=== PATIENT | female | born 1965 | race Caucasian/White ===

== ENCOUNTER 2020-09-30 13:52 | Outpatient (REF) | payer OTHER, SELFPAY ==
[2020-09-30 16:32] LABS: Hematocrit 42.3 % (37-47); Hemoglobin 13.7 g/dl (12.0-16.0); Mean Corpuscular HGB Conc 32.4 g/dl (31.0-35.0); Mean Corpuscular Hemoglobin 35.1 pg (27.0-33.0); Mean Corpuscular Volume 108.5 fL (80-98); Platelet Count 255 X10*3/uL (160-400); Red Cell Distribution Width 12.5 % (11.0-16.0); White Blood Count 5.8 X10*3/uL (4.8-10.8)
[2020-09-30 16:41] LABS: Glucose Urine UA NEG (NEG); Leukocyte Esterase Urine NEG (NEG); Nitrite Urine NEG (NEG); PH 5.5 (5.0-8.0); Urine Blood NEG (NEG); Urine Ketones NEG (NEG); Urine Protein NEG (NEG-TRACE)
[2020-09-30 16:43] LABS: Appearance Urine CLEAR; Color Urine YELLOW
[2020-09-30 16:49] LABS: Bacteria Urine TRACE /LPF; Mucus Urine TRACE /LPF; RBC Urine 0 /HPF (0); Squamous Epithelial Cell Urine 2+ /LPF; Uric Acid Crystals Urine TRACE /LPF
[2020-09-30 17:02] LABS: Alanine Aminotransferase 28 U/L (0-31); Alkaline Phosphatase 63 U/L (39-117); Anion Gap 13 (12-20); Aspartate Amino Transferase 45 U/L (5-31); Bilirubin Total 0.7 mg/dL (0.0-1.0); Blood Urea Nitrogen 3 mg/dL (9-16); Carbon Dioxide 28 mmol/L (22-29); Chloride 102 mmol/L (96-108); Cholesterol 204 mg/dL; Estimated Glomerular Filt Rate > 60; Glucose Fasting 93 mg/dL (60-99); HDL Cholesterol 51 mg/dL; LDL Cholesterol Calculated 121 mg/dl; Magnesium 2.1 mg/dL (1.6-2.6); Potassium 4.1 mmol/L (3.3-5.1); Sodium 139 mmol/L (135-145); Total Protein 6.6 g/dL (6.5-8.0); Triglycerides 164 mg/dL
[2020-09-30 17:19] LABS: TSH reflex Free T4 2.41 uIU/mL (0.32-4.0)
== END 2020-09-30 13:53 | disposition home or self-care (01) ==
LOC: HO.HMGCLDS 13:52
PROVIDERS: PCP Internal Medicine; Visit Provider Internal Medicine
DX: Z00.00 Encounter for general adult medical examination without abnormal findings (principal); I10 Essential (primary) hypertension
CPT/HCPCS: 36415; 80053; 80061; 81001; 83735; 84443; 85027

== ENCOUNTER 2020-10-20 11:31 | Outpatient (REF) | payer OTHER, SELFPAY ==
[2020-10-20 14:30] LABS: Iron 143 mcg/dL (30-160); Percent Iron Saturation 42 % (15-50); Total Iron Binding Capacity 337 mcg/dL (228-428); Unsaturated Iron Binding 194 ug/dL
[2020-10-20 15:41] LABS: Folate 4.3 ng/mL (> or = 4.0); Vitamin B12 245 pg/mL (200-900)
== END 2020-10-20 11:32 | disposition home or self-care (01) ==
LOC: HO.HMGCLDS 11:31
PROVIDERS: PCP Internal Medicine; Visit Provider Internal Medicine
DX: D53.9 Nutritional anemia, unspecified (principal)
CPT/HCPCS: 36415; 82607; 82746; 83540

== ENCOUNTER 2020-11-10 10:29 | Outpatient (REF) | payer OTHER, SELFPAY ==
--- NOTE | ~2020-11-10 | US_ITS ---
EXAMINATION: US EXTRACRANIAL CAROTID DUPLEX, BILATERAL CLINICAL INFORMATION: Sudden vision loss. COMPARISON: None TECHNIQUE: Real-time ultrasound and Doppler techniques (integrating B-mode 2-D vascular images, Doppler spectral analysis and color-flow Doppler imaging) were utilized to interrogate the extracranial carotid arteries, the vertebral arteries and proximal subclavian arteries bilaterally. The degree of stenosis is determined by criteria similar to NASCET. FINDINGS: Right Side: 1. There is no atherosclerotic plaque seen in the bifurcation/proximal ICA region. 2. The common carotid artery PSV proximally is 93 cm/s and distally 89 cm/s. 3. The proximal internal carotid artery velocities are 66 cm/s systolic and 22 cm/s diastolic. 4. The proximal external carotid artery PSV is 54 cm/s. 5. The vertebral artery shows antegrade flow. 6. The subclavian artery waveforms are normal. Left Side: 1. There is no atherosclerotic plaque seen in the bifurcation/proximal ICA region. 2. The common carotid artery PSV proximally is 87 cm/s and distally 62 cm/s. 3. The proximal internal carotid artery velocities are 71 cm/s systolic and 26 cm/s diastolic. 4. The proximal external carotid artery PSV is 67 cm/s. 5. The vertebral artery shows antegrade flow. 6. The subclavian artery waveforms are normal. US/US carotid duplex BI IMPRESSION: 1. RIGHT: Normal right internal carotid artery without atherosclerotic plaque or hemodynamically significant stenosis. 2. LEFT: Normal left internal carotid artery without atherosclerotic plaque or hemodynamically significant stenosis.
--- NOTE | ~2020-11-10 | US_ITS ---
EXAMINATION: US COMPLETE ABDOMEN WITH LIVER ELASTOGRAPHY CLINICAL INFORMATION: Cirrhosis. COMPARISON: None. TECHNIQUE: Real-time imaging of the abdominal viscera. Noninvasive ultrasound liver fibrosis assessment is performed using Benji ElastPQ point quantification shear wave elastography (pSWE) with a C5-2 MHz transducer. Multiple elastography samples are obtained. FINDINGS: PANCREAS: The pancreas is partially visualized with proximal body of the pancreas appearing homogeneous in echotexture. ABDOMINAL AORTA: The proximal, middle, and distal aortic segments are normal in caliber. INFERIOR VENA CAVA: Visualized portions are normal. LIVER: The liver demonstrates normal size, contour and increased echogenicity. No focal lesion or intrahepatic biliary duct dilatation. The right lobe measures 12.2 cm in length. The left lobe measures 5.0 cm in length. Portal flow is hepatopedal. Shear wave liver elastography median stiffness is 1.54 m/s (reference: normal median stiffness is 1.3 m/s or less). IQR/median stiffness to assess sampling precision is 0.26 (reference: good quality data set is IQR/median stiffness of 0.15 or less). GALLBLADDER: There are multiple echogenic gallstones with mild gallbladder wall thickening of 0.4 cm. No pericholecystic fluid collection or tenderness in the right upper quadrant. COMMON BILE DUCT: Normal in caliber measuring 0.4 cm in diameter. RIGHT KIDNEY: Normal. No hydronephrosis. No renal calculi or focal parenchymal lesions. The kidney measures 10.6 cm in maximum dimension. LEFT KIDNEY: Normal. No hydronephrosis. No renal calculi or focal parenchymal lesions. The kidney measures 10.1 cm in maximum dimension. SPLEEN: Normal. The spleen measures 9.5 cm in maximum dimension. FREE FLUID: None. US/US abdomen comp w elastography IMPRESSION: 1. Hepatic steatosis without focal lesion. 2. Cholelithiasis with mild wall thickening. 3. Rest of the abdominal ultrasound is unremarkable. 4. Liver elastography: Median stiffness 1.54 m/s. This corresponds to cACL (ruled out) REFERENCE: Society of Radiologists in Ultrasound Liver Stiffness Thresholds (2019): LIVER STIFFNESS THRESHOLDS: *Liver Stiffness equal or less than 1.3 m/s: High probability of being normal. *Liver Stiffness less than 1.7 m/s: In the absence of other known clinical signs, rules out compensated advanced chronic liver disease. *Liver Stiffness 1.7-2.1 m/s: Suggestive of compensated advanced chronic liver disease but need further test for confirmation. *Liver Stiffness over 2.1 m/s: Rules in compensated advanced chronic liver disease. *Liver Stiffness over 2.4 m/s: Suggestive of clinically significant portal hypertension. QUALITY OF DATA SET: *IQR/Median value equal or less than 0.15 implies a quality data set. *IQR/Median value over 0.15 implies a poor quality data set. SIGNIFICANT CHANGE FROM PRIOR EXAM: Significant change if liver stiffness measurement is 10% or greater from prior exam. OTHER CONSIDERATIONS: The stage of liver fibrosis may be overestimated in the setting of acute hepatitis, liver inflammation, elevated liver function tests, hepatic vascular congestion, obstructive cholestasis, non-fasting state, and infiltrative diseases such as amyloidosis and lymphoma. In some patients with NAFLD, the liver stiffness thresholds for compensated advanced chronic liver disease may be lower. In causes other than viral hepatitis and NAFLD, liver stiffness thresholds are not well established.
== END 2020-11-10 10:30 | disposition home or self-care (01) ==
LOC: HO.US 10:29
PROVIDERS: PCP Internal Medicine; Visit Provider Internal Medicine
DX: K74.60 Unspecified cirrhosis of liver (principal); D53.9 Nutritional anemia, unspecified; H53.139 Sudden visual loss, unspecified eye
CPT/HCPCS: 76705; 76981; 93880

== ENCOUNTER → 2020-12-22 14:54 | Outpatient (BNVA) | payer OTHER, SELFPAY | PROVIDERS: PCP Internal Medicine; Referring Provider Internal Medicine; Visit Provider Surgery | DX: K52.9 Noninfective gastroenteritis and colitis, unspecified (principal) | CPT/HCPCS: 99202 ==

== ENCOUNTER 2021-12-01 10:37 | Outpatient (REF) | payer OTHER, SELFPAY ==
[2021-12-01 13:42] LABS: Basophils Absolute Auto 0.1 X10*3/uL (0.0-0.2); Basophils Percent Auto 0.9 % (0-2); Eosinophils Absolute Auto 0.3 X10*3/uL (0.0-0.4); Eosinophils Percent Auto 3.9 % (0-4); Hematocrit 44.1 % (37.0-47.0); Hematocrit 44.2 % (37.0-47.0); Hemoglobin 14.1 g/dl (12.0-16.0); Imm Gran Abs Auto 0.02 X10*3/uL (0.00-0.03); Imm Gran Pct Auto 0.3 % (0.0-0.4); Lymphocytes Absolute Auto 1.6 X10*3/uL (1.2-4.9); Lymphocytes Percent Auto 25.5 % (20-40); MANUAL DIFF FLAG NO; Mean Corpuscular HGB Conc 31.7 g/dl (31.0-35.0); Mean Corpuscular HGB Conc 31.9 g/dl (31.0-35.0); Mean Corpuscular Hemoglobin 30.8 pg (27.0-33.0); Mean Corpuscular Hemoglobin 31.1 pg (27.0-33.0); Mean Corpuscular Volume 97.1 fL (80.0-98.0); Mean Corpuscular Volume 97.6 fL (80.0-98.0); Mean Platelet Volume 11.5 fL (9.4-12.3); Mean Platelet Volume 11.7 fL (9.4-12.3); Monocytes Absolute Auto 0.3 X10*3/uL (0.1-1.2); Monocytes Percent Auto 4.6 % (2-11); Neutrophils Absolute Auto 4.1 x10*3/uL (2.0-8.3); Neutrophils Percent Auto 64.8 % (45-73); Platelet Count 262 X10*3/uL (160-400); Platelet Count 267 X10*3/uL (160-400); Red Blood Count 4.53 X10*6/uL (4.20-5.50); Red Blood Count 4.54 X10*6/uL (4.20-5.50); Red Cell Distribution Width 11.2 % (11.0-16.0); White Blood Count 6.4 X10*3/uL (4.8-10.8); White Blood Count 6.5 X10*3/uL (4.8-10.8)
[2021-12-01 14:00] LABS: Estimated Average Glucose 108 mg/dL; Hemoglobin A1c % 5.4 %
[2021-12-01 14:04] LABS: Alanine Aminotransferase 14 U/L (0-31); Albumin Level 4.5 g/dL (3.5-5.0); Alkaline Phosphatase 61 U/L (39-117); Anion Gap 12 (12-20); Aspartate Amino Transferase 15 U/L (5-31); Bilirubin Total 0.6 mg/dL (0.0-1.0); Blood Urea Nitrogen 9 mg/dL (9-16); Calcium 10.1 mg/dL (8.4-10.2); Carbon Dioxide 29 mmol/L (22-29); Chloride 103 mmol/L (96-108); Cholesterol 242 mg/dL; Estimated Glomerular Filt Rate > 60; Glucose Fasting 101 mg/dL (60-99); HDL Cholesterol 45 mg/dL; Iron 66 mcg/dL (30-160); LDL Cholesterol Calculated 168 mg/dl; Percent Iron Saturation 21 % (15-50); Potassium 4.4 mmol/L (3.3-5.1); Sodium 140 mmol/L (135-145); Total Iron Binding Capacity 313 mcg/dL (228-428); Total Protein 7.4 g/dL (6.5-8.0); Triglycerides 146 mg/dL; Unsaturated Iron Binding 247 ug/dL
[2021-12-01 14:09] LABS: Alanine Aminotransferase 16 U/L (0-31); Albumin Level 4.5 g/dL (3.5-5.0); Alkaline Phosphatase 61 U/L (39-117); Amylase 44 U/L (28-100); Anion Gap 12 (12-20); Aspartate Amino Transferase 16 U/L (5-31); Bilirubin Total 0.6 mg/dL (0.0-1.0); Blood Urea Nitrogen 10 mg/dL (9-16); Calcium 10.1 mg/dL (8.4-10.2); Carbon Dioxide 29 mmol/L (22-29); Chloride 103 mmol/L (96-108); Cholesterol 241 mg/dL; Estimated Glomerular Filt Rate > 60; Glucose Random 99 mg/dL (60-115); Lipase 27 U/L (8-78); Magnesium 2.3 mg/dL (1.6-2.6); Potassium 4.4 mmol/L (3.3-5.1); Sodium 140 mmol/L (135-145); Total Protein 7.4 g/dL (6.5-8.0)
[2021-12-01 14:30] LABS: Vitamin D 25-OH Total 18.6 ng/mL (>30)
[2021-12-01 14:33] LABS: TSH reflex Free T4 0.98 uIU/mL (0.32-4.0)
[2021-12-01 14:34] LABS: Folate > 20.0 ng/mL (> or = 4.0); Vitamin B12 381 pg/mL (200-900)
[2021-12-01 14:35] LABS: Folate > 20.0 ng/mL (> or = 4.0); Vitamin B12 366 pg/mL (200-900)
[2021-12-04 07:44] LABS: HBc Num1 0.06 S/CO (0.00-0.79); Hepatitis B Core Antibody Nonreactive (Nonreactive)
[2021-12-04 07:45] LABS: ~HepC Num1 0.11 S/CO (0.00-0.79); ~Hepatitis C Antibody Nonreactive (Nonreactive)
[2021-12-07 15:12] LABS: Hepatitis C Genotype Not Detected
== END 2021-12-01 10:38 | disposition home or self-care (01) ==
LOC: HO.HMGCLDS 10:37
PROVIDERS: Absent Provider Counselor Addiction (Substance Use Disorder); PCP Internal Medicine; Visit Provider Internal Medicine
DX: Z00.00 Encounter for general adult medical examination without abnormal findings (principal); E53.8 Deficiency of other specified B group vitamins; I10 Essential (primary) hypertension; K52.9 Noninfective gastroenteritis and colitis, unspecified; F10.21 Alcohol dependence, in remission; F33.2 Major depressive disorder, recurrent severe without psychotic features; F41.1 Generalized anxiety disorder; Z79.899 Other long term (current) drug therapy; Z90.410 Acquired total absence of pancreas
CPT/HCPCS: 36415; 80053; 80061; 82150; 82306; 82465; 82607; 82746; 83036; 83540; 83690; 83735; 84439; 84443; 85025; 85027; 86704; 86803; 87902

== ENCOUNTER 2022-06-05 11:00 | Outpatient (RCR) | payer OTHER, SELFPAY ==
--- NOTE | 2022-04-09 14:21 | MHC.PT.EP ---
[facility] [place] [facility] [place] [facility] [place] Office [address] Manas Harrison [address] [phone] F: [phone] F: [phone] F: [phone] F: [phone] Physical Therapy Plan of Care Date of Evaluation: Date of Surgery: Diagnosis: cervicalgia Assessment: 56 y/o F referred to PT with cervicalgia. She has had on/off neck pain for several years of insidious onset, but has recently worsened resulting in pain and difficulty with prolonged sitting, computer work, looking down, reaching overhead, and turning head. Examination shows decreased cervical AROM, decreased scapular strength, increased pain, and impaired postural awareness. Recommend PT 2x/week for 5 weeks to address impairments, implement HEP, and optimize functional mobility. 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 Improve scapular strength to 4/5 to decrease pain in static postures 3 Pt will be able to sit with lumbar roll and pain < 3/10 for > 45 min Treatment Plan: Modalities to reduce pain, spasms and effusion. Manual therapy to restore motion and function. Therapeutic exercise to improve strength and flexibility. Neuromuscular re-education for posture and balance. Therapeutic activities to return to functional activities of daily living. Electronically signed by: Yenifer Morrison PT Please sign and return to therapist. Thank you for your referral.
--- NOTE | 2022-06-15 14:21 | MHC.PT.DC ---
[facility] [place] Office [place] Office [place] Office [address] Manas Harrison [address] [phone] F: [phone] F: [phone] F: [phone] F: [phone] Physical Therapy Discharge Report Diagnosis: cervicalgia Date of Surgery: Date of Evaluation: 04/09/22 Date of Discharge: 06/15/22 Treatments to Date: 12 Cancellations to Date: 0 No Shows to Date: 0 Discharge Status: Achieved Goals Improved Function Independent with HEP Discharge Summary: She has been making good progress and demonstrates improved cervical ROM, improved postural awareness, and is I with HEP. Appropriate for d/c at this time. Electronically signed by: Yenifer Morrison PT Please sign and return to therapist. Thank you for your referral.
== END 2022-06-15 14:21 | disposition home or self-care (01) ==
LOC: HO.PTCHIC 11:00
PROVIDERS: PCP Internal Medicine; Visit Provider Internal Medicine
DX: M54.2 Cervicalgia (principal)
CPT/HCPCS: 97012; 97014; 97110; 97140; 97161

== ENCOUNTER 2022-06-07 10:51 | Outpatient (REF) | payer OTHER, SELFPAY ==
[2022-06-07 13:50] LABS: MANUAL DIFF FLAG NO
[2022-06-07 13:56] LABS: Basophils Absolute Auto 0.1 X10*3/uL (0.0-0.2); Basophils Percent Auto 0.9 % (0-2); Eosinophils Absolute Auto 0.3 X10*3/uL (0.0-0.4); Eosinophils Percent Auto 5.1 % (0-4); Hematocrit 42.5 % (37.0-47.0); Hemoglobin 13.6 g/dl (12.0-16.0); Imm Gran Abs Auto 0.02 X10*3/uL (0.00-0.03); Imm Gran Pct Auto 0.3 % (0.0-0.4); Lymphocytes Absolute Auto 1.9 X10*3/uL (1.2-4.9); Mean Corpuscular Hemoglobin 29.4 pg (27.0-33.0); Mean Platelet Volume 11.1 fL (9.4-12.3); Monocytes Absolute Auto 0.3 X10*3/uL (0.1-1.2); Monocytes Percent Auto 4.5 % (2-11); Neutrophils Absolute Auto 3.8 x10*3/uL (2.0-8.3); Neutrophils Percent Auto 59.2 % (45-73); Platelet Count 263 X10*3/uL (160-400); Red Blood Count 4.62 X10*6/uL (4.20-5.50); Red Cell Distribution Width 13.1 % (11.0-16.0); White Blood Count 6.4 X10*3/uL (4.8-10.8)
[2022-06-07 14:15] LABS: Alanine Aminotransferase 15 U/L (0-31); Albumin Level 4.5 g/dL (3.5-5.0); Alkaline Phosphatase 62 U/L (39-117); Anion Gap 16 (12-20); Aspartate Amino Transferase 20 U/L (5-31); Blood Urea Nitrogen 11 mg/dL (9-16); Calcium 9.6 mg/dL (8.4-10.2); Carbon Dioxide 28 mmol/L (22-29); Chloride 102 mmol/L (96-108); Cholesterol 278 mg/dL; Estimated Glomerular Filt Rate > 60; Glucose Fasting 98 mg/dL (60-99); HDL Cholesterol 60 mg/dL; LDL Cholesterol Calculated 190 mg/dl; Potassium 4.3 mmol/L (3.3-5.1); Sodium 142 mmol/L (135-145); Total Protein 7.2 g/dL (6.5-8.0); Triglycerides 141 mg/dL
[2022-06-07 14:29] LABS: Bilirubin Total 0.6 mg/dL (0.0-1.0)
[2022-06-07 14:32] LABS: Vitamin D 25-OH Total 22.4 ng/mL (>30)
[2022-06-07 14:43] LABS: Folate 19.5 ng/mL (> or = 4.0); Vitamin B12 609 pg/mL (200-900)
== END 2022-06-07 10:52 | disposition home or self-care (01) ==
LOC: HO.HMGCLDS 10:51
PROVIDERS: PCP Internal Medicine; Visit Provider Internal Medicine
DX: Z00.00 Encounter for general adult medical examination without abnormal findings (principal); E55.9 Vitamin D deficiency, unspecified; E53.8 Deficiency of other specified B group vitamins; I10 Essential (primary) hypertension
CPT/HCPCS: 36415; 80053; 80061; 82306; 82607; 82746; 85025

== ENCOUNTER 2022-07-18 11:00 | Outpatient (RCR) | payer OTHER, SELFPAY ==
--- NOTE | 2022-06-07 13:03 | MHC.PT.EP ---
[facility] [place] Office [place] Office [place] Office [address] [phone] F: [phone] F: [phone] F: [phone] F: [phone] Physical Therapy Plan of Care Date of Evaluation: Date of Surgery: Diagnosis: Lower back pain Assessment: Patient is a 56 year old R handed female who presents with s/s consistent with low back pain. 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 Patient past medical history includes cardiac ablation, HTN. Current impairments include pain, posture, ROM, strength, activity tolerance and functional mobility. Functional limitations include decreased ability to sleep, transfer, bend, lift, walk and stand. Patient is motivated with good rehab potential. Skilled PT will address impairments and functional limitations in order to achieve goals. Frequency and Duration: The patient will be seen 2x/week for 5 weeks Short Term Goals: I with HEP - 2 weeks Rotation 100% and pain free - 3 weeks Hip ER AROM 40 b/l - 3 weeks Mcfp Goals: Oswestry 20% or less - 5 weeks Able to walk/stand 30 minutes or greater without increased pain - 5 weeks Demo proper floor to waist body mechanics without cues - 5 weeks Treatment Plan: Modalities to reduce pain, spasms and effusion. Manual therapy to restore motion and function. Therapeutic exercise to improve strength and flexibility. Neuromuscular re-education for posture and balance. Therapeutic activities to return to functional activities of daily living. Electronically signed by: Jose Manuel Tan, PT Please sign and return to therapist. Thank you for your referral.
== END 2022-07-31 11:06 | disposition home or self-care (01) ==
LOC: HO.PTCHIC 11:00
PROVIDERS: PCP Internal Medicine; Visit Provider Internal Medicine
DX: M54.50 Low back pain, unspecified (principal); M25.552 Pain in left hip
CPT/HCPCS: 97110; 97140; 97162

== ENCOUNTER 2022-07-19 14:22 | Outpatient (REF) | payer OTHER, SELFPAY ==
--- NOTE | 2022-07-19 09:30 | EMG_ITS ---
Bilateral median and ulnar motor and sensory studies were performed. Bilateral radial sensory studies were performed and paraspinal muscles were tested with a needle. IMPRESSION: Moderately severe bilateral median neuropathy across carpal tunnel. MD COCO Landis/STEPHANIE / [phone]
== END 2022-07-19 14:23 | disposition home or self-care (01) ==
LOC: HO.NEURO 14:22
PROVIDERS: Visit Provider Internal Medicine
DX: G56.03 Carpal tunnel syndrome, bilateral upper limbs (principal)
CPT/HCPCS: 95886; 95911

== ENCOUNTER 2022-08-30 12:19 | Outpatient (REF) | payer OTHER, SELFPAY ==
[2022-08-30 14:14] LABS: Hematocrit 45.9 % (37.0-47.0); Hemoglobin 14.6 g/dl (12.0-16.0); Mean Corpuscular HGB Conc 31.8 g/dl (31.0-35.0); Mean Corpuscular Hemoglobin 29.7 pg (27.0-33.0); Mean Corpuscular Volume 93.5 fL (80.0-98.0); Mean Platelet Volume 11.2 fL (9.4-12.3); Platelet Count 231 X10*3/uL (160-400); Red Blood Count 4.91 X10*6/uL (4.20-5.50); Red Cell Distribution Width 13.2 % (11.0-16.0); White Blood Count 6.6 X10*3/uL (4.8-10.8)
[2022-08-30 14:49] LABS: Alanine Aminotransferase 11 U/L (0-31); Albumin Level 4.6 g/dL (3.5-5.0); Alkaline Phosphatase 70 U/L (39-117); Anion Gap 15 (12-20); Aspartate Amino Transferase 19 U/L (5-31); Bilirubin Total 0.5 mg/dL (0.0-1.0); Blood Urea Nitrogen 11 mg/dL (9-16); Calcium 9.8 mg/dL (8.4-10.2); Carbon Dioxide 29 mmol/L (22-29); Chloride 101 mmol/L (96-108); Cholesterol 271 mg/dL; Estimated Glomerular Filt Rate > 60; Glucose Fasting 90 mg/dL (60-99); HDL Cholesterol 73 mg/dL; LDL Cholesterol Calculated 176 mg/dl; Potassium 4.1 mmol/L (3.3-5.1); Sodium 141 mmol/L (135-145); TSH reflex Free T4 0.91 uIU/mL (0.32-4.0); Total Protein 7.4 g/dL (6.5-8.0); Triglycerides 110 mg/dL
== END 2022-08-30 12:20 | disposition home or self-care (01) ==
LOC: HO.HMGCLDS 12:19
PROVIDERS: PCP Internal Medicine; Visit Provider Internal Medicine
DX: E55.9 Vitamin D deficiency, unspecified (principal); E78.5 Hyperlipidemia, unspecified; M25.50 Pain in unspecified joint; I10 Essential (primary) hypertension
CPT/HCPCS: 36415; 80053; 80061; 84443; 85027

== ENCOUNTER → 2022-09-20 14:15 | Outpatient (REF) | payer OTHER, SELFPAY ==
--- NOTE | ~2022-09-20 | US_ITS ---
EXAMINATION: US EXTRACRANIAL CAROTID DUPLEX, BILATERAL CLINICAL INFORMATION: Cerebral infarct. COMPARISON: 11/10/2020 TECHNIQUE: Real-time ultrasound and Doppler techniques (integrating B-mode 2-D vascular images, Doppler spectral analysis and color-flow Doppler imaging) were utilized to interrogate the extracranial carotid arteries, the vertebral arteries and proximal subclavian arteries bilaterally. The degree of stenosis is determined by criteria similar to NASCET. FINDINGS: Right Side: 1. There is no significant atherosclerotic plaque seen in the bifurcation/proximal ICA region. 2. The common carotid artery PSV proximally is 97 cm/s and distally 70 cm/s. 3. The proximal internal carotid artery velocities are 70 cm/s systolic and 30 cm/s diastolic. 4. The proximal external carotid artery PSV is 100 cm/s. 5. The vertebral artery shows antegrade flow. 6. The subclavian artery waveforms are normal. Left Side: 1. There is no significant atherosclerotic plaque seen in the bifurcation/proximal ICA region. 2. The common carotid artery PSV proximally is 96 cm/s and distally 85 cm/s. 3. The proximal internal carotid artery velocities are 61 cm/s systolic and 26 cm/s diastolic. 4. The proximal external carotid artery PSV is 102 cm/s. 5. The vertebral artery shows antegrade flow. 6. The subclavian artery waveforms are normal. US/US carotid duplex BI IMPRESSION: RIGHT: Normal right internal carotid artery without atherosclerotic plaque or hemodynamically significant stenosis. LEFT: Normal left internal carotid artery without atherosclerotic plaque or hemodynamically significant stenosis. No interval change when compared to the 11/10/2020 study.
--- NOTE | 2022-09-20 14:18 | CA_ITS ---
Transthoracic Echocardiogram Amended Patient (Last, First, Middle): Alida Baig, Gender: Female Date of : 1965 Age: 57 Procedure Date: 09/20/2022 Procedure Type: Transthoracic Echocardiogram Location: OP Height: 162.56 cm Weight: 78.47 kg BSA: 1.84 m2 Heart Rate: bpm BP: 135 / 80 mmHg Senior Manager Quality Assurance: RUBIO Referring MD: Ami Reinoso MD Contract Technical Writer: Sebas Nelson MD Symptoms: I63.9 - Cerebral infarction, unspecified Study Quality: Adequate ECG Rhythm: Sinus Conclusions: - 1. Normal LV systolic function with grade 1 diastolic dysfunction 2. Normal cardiac valvular Dopplers 3. No gross pericardial effusion Findings Left Ventricle Normal left ventricular size, thickness, and systolic function. The visually estimated ejection fraction is between 60-65%. Spectral Doppler is indicative of an impaired relaxation filling pattern. E/E prime ratio is <8, consistent with normal filling pressures. Evidence suggests grade I (mild) diastolic dysfunction. Peak GLS is -24.2%, within normal limits. Right Ventricle Normal right ventricular cavity size and systolic function. Atria Both atria are normal in size. There is no evidence of interatrial shunt. Aortic Valve Normal aortic valve structure and function. There is no aortic valve stenosis. There is no aortic valve regurgitation. Mitral Valve Normal mitral valve structure and function. There is trace mitral valve regurgitation. There is no mitral valve stenosis. Pulmonic Valve The pulmonic valve is likely normal. Tricuspid Valve Normal tricuspid valve structure. Tricuspid regurgitation envelope is inadequate for calculation of right ventricular systolic pressure. Normal right atrial pressure. There is no evidence of pulmonary hypertension. Great Vessels All visible segments of the aorta are normal in size. The pulmonary artery was not well visualized. Venous The inferior vena cava is normal in size and collapses greater than 50% with inspiration. Pericardium/Pleural There is no evidence of pericardial effusion. Prior Study Comparison No prior study available for comparison. Measurements 2D Linear Measurements IVSd: 0.95 0.6-0.9/0.6-1.0 cm LVIDd: 4.58 3.9-5.3/4.2-5.9 cm LVIDd Index: 2.49 2.4-3.2/2.2-3.1 cm/m2 LVIDs: 2.59 2.0-3.6 cm LVPWd: 0.97 0.7-1.1 cm LA Diam: 3.60 2.7-3.8/3.0-4.0 cm LAIDs Index: 1.96 1.5-2.3 cm/m2 LV Mass: 186.62 67-162/88-224 g LV Mass Index: 101.42 43-95/49-115 g/m2 LVOT Diam: 2.00 3.0+(-)1.3 cm 2D Volumes LA Vol: 28.50 2D Systolic Function EF 4C: 67.80 >55% EF 2C: 61.30 >55% EF BiP: 65.90 >55% Mitral Valve MV Pk E: 0.78 MV PK A: 0.88 MV Decel Time: 299.00 E/A: 0.90 E'Lateral: 13.10 E'Medial: 11.70 E/E' Med: 6.70 E/E' Lat: 6.00 PHT: 87.00 MVA PHT: 2.53 Decel Donley: 2.61 Aortic Valve AoV Pk Marlon: 1.67 AoV Mn Marlon: 1.16 AoV VTI: 0.34 AoV Pk Grad: 11.00 Aov Mn Grad: 6.00 IZABELA Cont.VTI: 2.36 LVOT LVOT Pk Marlon: 1.33 LVOT Mn Marlon: 0.88 LVOT VTI: 0.26 LVOT Pk Grad: 7.00 LVOT Mn Grad: 4.00 LVOT Diam: 2.00 LVOT Area: 3.14 Diastolic Function MV Pk E: 0.78 MV Pk A: 0.88 E/A: 0.90 E'Medial: 11.70 E/E' Med: 6.70 E' Laterial: 13.10 E/E' Lat: 6.00 Right Ventricle TAPSE (mm): 24.80 TVS' Marlon: 11.60 Tricuspid Valve RA Press: 3.00 Great Vessels Aorta Sinus of Valsalva: 3.34 2.0-3.[address] Ridge: 2.78 1.7-3.4 cm Ao Asc: 3.20 2.1-3.4 cm Ao Arch: 2.70 Updated in Other Vendor System with Status of Final Sebas Nelson MD electronically signed on 09/21/2022 12:24:44 PM with status of Final
== END ==
LOC: HO.CARD 14:15
PROVIDERS: PCP Internal Medicine; Visit Provider Internal Medicine
DX: I63.9 Cerebral infarction, unspecified (principal); E55.9 Vitamin D deficiency, unspecified; E78.5 Hyperlipidemia, unspecified; I10 Essential (primary) hypertension; M25.50 Pain in unspecified joint; R09.89 Other specified symptoms and signs involving the circulatory and respiratory systems
CPT/HCPCS: 93306; 93356; 93880

== ENCOUNTER 2023-01-10 08:19 | Outpatient (REF) | payer OTHER, SELFPAY ==
[2023-01-10 11:49] LABS: Alanine Aminotransferase 60 U/L (0-31); Albumin Level 4.4 g/dL (3.5-5.0); Alkaline Phosphatase 50 U/L (39-117); Anion Gap 11 (12-20); Aspartate Amino Transferase 20 U/L (5-31); Bilirubin Total 0.5 mg/dL (0.0-1.0); Blood Urea Nitrogen 13 mg/dL (9-16); Calcium 9.7 mg/dL (8.4-10.2); Carbon Dioxide 31 mmol/L (22-29); Chloride 104 mmol/L (96-108); Cholesterol 236 mg/dL; Estimated Glomerular Filt Rate > 60; Glucose Fasting 106 mg/dL (60-99); HDL Cholesterol 66 mg/dL; LDL Cholesterol Calculated 141 mg/dl; Potassium 4.4 mmol/L (3.3-5.1); Sodium 142 mmol/L (135-145); Total Protein 7.2 g/dL (6.5-8.0); Triglycerides 146 mg/dL
== END 2023-01-10 08:20 | disposition home or self-care (01) ==
LOC: HO.HMGCLDS 08:19
PROVIDERS: PCP Internal Medicine; Visit Provider Internal Medicine
DX: I63.9 Cerebral infarction, unspecified (principal); E78.5 Hyperlipidemia, unspecified
CPT/HCPCS: 36415; 80053; 80061

== ENCOUNTER 2023-05-17 09:59 | Outpatient (REF) | payer OTHER, SELFPAY ==
--- NOTE | ~2023-05-17 | XR_ITS ---
EXAMINATION: AP STANDING VIEW BOTH KNEES. XR KNEE, LEFT. CLINICAL INFORMATION: Left knee pain COMPARISON: None. TECHNIQUE: AP standing view both knees. Lateral and sunrise views of the left knee. FINDINGS: No joint space narrowing. No fracture. No left knee joint effusion. Significant degenerative findings. XR/XR knee LT 2V IMPRESSION: Normal study.
--- NOTE | ~2023-05-17 | XR_ITS ---
EXAMINATION: AP STANDING VIEW BOTH KNEES. XR KNEE, LEFT. CLINICAL INFORMATION: Left knee pain COMPARISON: None. TECHNIQUE: AP standing view both knees. Lateral and sunrise views of the left knee. FINDINGS: No joint space narrowing. No fracture. No left knee joint effusion. Significant degenerative findings. XR/XR knee standing BI IMPRESSION: Normal study.
== END 2023-05-17 10:00 | disposition home or self-care (01) ==
LOC: HO.HOSX 09:59
PROVIDERS: Visit Provider Orthopaedic Surgery
DX: M23.92 Unspecified internal derangement of left knee (principal)
CPT/HCPCS: 73560; 73565

== ENCOUNTER 2023-05-17 11:55 | Outpatient (AMB) | payer OTHER, SELFPAY ==
--- NOTE | 2023-05-17 11:59 | A.OFFVIS_ITS ---
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 She was seen at an urgent care facility where xrays were done. X rays updated today, she reports she feels something is wrong in her knee. She is having trouble sleeping and she has not been taking anything for the pain due to her mild liver condition. Allergies No Known Allergies Allergy (Verified 05/17/23 12:24) Medication List - Last Reconciled 05/17/23 by Carina Juan RN albuterol sulfate 90 mcg/actuation (ProAir HFA) inhalation buspirone 7.5 mg PO TID cholecalciferol (vitamin D3) 50 mcg PO DAILY fluticasone propionate 50 mcg/actuation 1 spray intranasal BID lisinopril 5 mg PO DAILY loratadine 10 mg PO DAILY lorazepam 0.5 mg PO DAILY PRN miscellaneous medical supply 1 ea miscellaneous .QD multivitamin with iron 1 tab PO DAILY pravastatin 40 mg PO DAILY sertraline 150 mg PO QAM thiamine HCl (vitamin B1) 100 mg PO DAILY trazodone 50 mg PO BEDTIME valacyclovir (Valtrex) 1,000 mg PO DAILY HPI LEAD CUSTODIAN-Pain in left knee HPI Details Alida is a 57 year old woman who presents with complaints of left knee pain. She feels something is wrong inside her knee. She says her pain is present during the day, worse with stairs, but her pain is most severe at night. She reports having woken up due to pain several times at night, with a pinching pain that she rates as an 8 or 9 . Her pain is most severe when straightening her leg after being flexed for some time. She says she has trouble sleeping at night due to her pain. She says she injured her knee over a month ago , whens he was climbing over a gate following her new dog. She says she caught her toe and twisted her knee. She has not been able to take pain medication due to her liver. [facility] Medical History (Updated 05/17/23 @ 12:32 by Cholo Victor MD) Internal derangement of left knee Vitamin D deficiency Anxiety Vitamin B12 deficiency IBS (irritable bowel syndrome) Food allergy Macrocytic anemia Gall stones Normal Pap smear Fatty liver Chronic diarrhea Annual physical exam HTN (hypertension) Family History (Updated 11/26/22 @ 14:20 by Jasmyne Kim Virgil) Maternal Grandmother Crohn disease Mother Colon polyps Father No problems noted. Sister Mental health disorder Substance use disorder Social History Housing: House Alcohol intake: current Alcohol intake frequency: holidays/special occasions only Patient Tobacco Use Status: Never used Tobacco e-Cigarette/Vaping Use: Never Used Second Hand Smoke Exposure: No Current occupational status: employed Cognitive needs: No Hearing needs: No Vision needs: Yes Review of Systems Const All systems reviewed & are unremarkable except as noted in HPI and below Physical Exam Const General: no acute distress, alert and awake Orientation/consciousness: patient oriented x3 HEENT Head: Yes normocephalic and Yes atraumatic Eyes EOM: EOMs intact bilaterally Resp Effort & Inspection: normal respiratory effort and able to speak in complete sentences Cardio Jugular venous distension: no JVD Skin General skin exam: turgor normal Rashes: no rashes Neuro General: patient oriented x3 Extrem Other: Left Knee: Full ROM+ Steinmen's TTP MJL Psych Appearance: grossly normal Affect: normal affect Attitude: cooperative Results Reviewed Results Reviewed: I personally reviewed relevant radiographs. nl knee radiographs Assessment & Plan Assessment & Plan (1) Internal derangement of left knee: Code(s): M23.92 - Unspecified internal derangement of left knee Plan: This is a 57 year old woman with left knee internal derangement. She complains of pain with daily activity, worse with using stairs and most severe at night when trying to extend her leg. She describes her pain as pinching and says it is affecting her sleep. I discussed her diagnosis and treatment options. I ordered an MRI to assess her knee and recommend frequent icing, NSAIDs, quad strengthening, and she continue activity as tolerated. She will follow up when completed for review. Plan Scribed for Cholo Victor MD by Pako Brandt, medical leader, on 05/17/23 at 12:35 PM, EST. Orders: Orders XR knee LT 2V 05/17/23 M25.569 - Pain in unspecified knee XR knee standing BI 05/17/23 M25.569 - Pain in unspecified knee MR knee LT wo con 05/17/23 M23.92 - Unspecified internal derangement of left knee Coding Level of Care Code New Pt Level 4 (33215) Diagnoses Internal derangement of left knee M23.92
== END 2023-05-17 12:37 | disposition home or self-care (01) ==
PROVIDERS: PCP Internal Medicine; Visit Provider Orthopaedic Surgery
DX: M23.92 Unspecified internal derangement of left knee (principal)
CPT/HCPCS: 99204

== ENCOUNTER 2023-06-21 12:30 | Outpatient (AMB) | payer OTHER, SELFPAY ==
--- NOTE | 2023-06-21 12:44 | A.OFFVIS_ITS ---
Intake Intake Visit Reasons: ov- MCL sprain left MRI review Intake Note: Alida is a 57 year old female who presents today for an MRI follow up of her left knee. Allergies No Known Allergies Allergy (Verified 06/21/23 12:46) HPI ov- MCL sprain left MRI review HPI Details Alida is a 57 year old woman who returns for an MRI review of her left knee pain. She continues to have pain with activity, worse with stairs, but her pain is most severe at night. She reports having woken up due to pain several times at night. Her pain is most severe when straightening her leg after being flexed for some time. She has been icing her knee and taking NSAIDs, with minimal relief PFS Medical History (Updated 06/21/23 @ 13:01 by Pako Brandt) Internal derangement of left knee Vitamin D deficiency Anxiety Vitamin B12 deficiency IBS (irritable bowel syndrome) Food allergy Macrocytic anemia Gall stones Normal Pap smear Fatty liver Chronic diarrhea Annual physical exam HTN (hypertension) Family History (Updated 11/26/22 @ 14:20 by SAMY Khan) Maternal Grandmother Crohn disease Mother Colon polyps Father No problems noted. Sister Mental health disorder Substance use disorder Social History Housing: House Alcohol intake: current Alcohol intake frequency: holidays/special occasions only Patient Tobacco Use Status: Never used Tobacco e-Cigarette/Vaping Use: Never Used Second Hand Smoke Exposure: No Current occupational status: employed Cognitive needs: No Hearing needs: No Vision needs: Yes Review of Systems Const All systems reviewed & are unremarkable except as noted in HPI and below Physical Exam Const General: no acute distress, alert and awake Orientation/consciousness: patient oriented x3 HEENT Head: Yes normocephalic and Yes atraumatic Eyes EOM: EOMs intact bilaterally Resp Effort & Inspection: normal respiratory effort and able to speak in complete sentences Cardio Jugular venous distension: no JVD Skin General skin exam: turgor normal Rashes: no rashes Neuro General: patient oriented x3 Extrem Other: Left Knee: Full ROM TTP femoral insertion of MCL Stable to valgus stress at 0/30deg No effusion Psych Appearance: grossly normal Affect: normal affect Attitude: cooperative Results Reviewed Results Reviewed: I personally reviewed relevant radiographs & MR images. nl knee radiographs Grade 1 tear/sprain of the proximal superficial MCL No ligament or cartilage defect Assessment & Plan Assessment & Plan (1) MCL sprain of left knee: Code(s): S83.412A - Sprain of medial collateral ligament of left knee, initial encounter Plan: This is a 57 year old woman with G1 MCL injury to left knee. She has not started PT. I reviewed treatment goals and wrote an rx for PT. This should continue to improve over time. No additional intervention warranted. Plan Scribed for Cholo Victor MD by Pako Brandt, certified medical assistant, on 06/21/23 at 1:05 PM, EST. Orders: Orders PT Evaluation and Treatment 06/21/23 S83.412A - Sprain of medial collateral ligament of left knee, initial encounter Medications: New meloxicam 15 mg PO DAILY 30 tabs 2RF Coding Level of Care Code Est Pt Level 4 (21826) Diagnoses MCL sprain of left knee S83.412A
== END 2023-06-21 13:29 | disposition home or self-care (01) ==
PROVIDERS: PCP Internal Medicine; Visit Provider Orthopaedic Surgery
DX: S83.412A Sprain of medial collateral ligament of left knee, initial encounter (principal)
CPT/HCPCS: 99214

== ENCOUNTER → 2023-06-21 12:30 | Outpatient (BNVA) | payer OTHER, SELFPAY | PROVIDERS: PCP Internal Medicine; Visit Provider Orthopaedic Surgery | DX: S83.412D Sprain of medial collateral ligament of left knee, subsequent encounter (principal) | CPT/HCPCS: 99212 ==

== ENCOUNTER 2023-11-18 11:49 | Outpatient (REF) | payer OTHER, SELFPAY ==
[2023-11-18 13:25] LABS: MANUAL DIFF FLAG NO
[2023-11-18 13:30] LABS: Basophils Absolute Auto 0.1 X10*3/uL (0.0-0.2); Basophils Percent Auto 1.1 % (0-2); Eosinophils Absolute Auto 0.2 X10*3/uL (0.0-0.4); Eosinophils Percent Auto 3.7 % (0-4); Hematocrit 45.3 % (37.0-47.0); Hemoglobin 14.6 g/dl (12.0-16.0); Imm Gran Abs Auto 0.02 X10*3/uL (0.00-0.03); Imm Gran Pct Auto 0.3 % (0.0-0.4); Lymphocytes Absolute Auto 2.3 X10*3/uL (1.2-4.9); Mean Corpuscular HGB Conc 32.2 g/dl (31.0-35.0); Mean Corpuscular Hemoglobin 30.3 pg (27.0-33.0); Mean Platelet Volume 11.1 fL (9.4-12.3); Monocytes Absolute Auto 0.3 X10*3/uL (0.1-1.2); Monocytes Percent Auto 4.9 % (2-11); Neutrophils Absolute Auto 3.4 x10*3/uL (2.0-8.3); Platelet Count 262 X10*3/uL (160-400); Red Blood Count 4.82 X10*6/uL (4.20-5.50); Red Cell Distribution Width 11.7 % (11.0-16.0); White Blood Count 6.3 X10*3/uL (4.8-10.8)
[2023-11-18 13:44] LABS: Estimated Average Glucose 103 mg/dL; Hemoglobin A1c % 5.2 % (<6.0)
[2023-11-18 14:31] LABS: Alanine Aminotransferase 18 U/L (0-31); Albumin Level 4.5 g/dL (3.5-5.0); Alkaline Phosphatase 61 U/L (39-117); Anion Gap 14 (12-20); Aspartate Amino Transferase 19 U/L (5-31); Bilirubin Total 0.5 mg/dL (0.0-1.0); Blood Urea Nitrogen 13 mg/dL (9-16); Carbon Dioxide 29 mmol/L (22-29); Chloride 103 mmol/L (96-108); Cholesterol 274 mg/dL (<200); Estimated Glomerular Filt Rate > 60; Glucose Fasting 90 mg/dL (60-99); HDL Cholesterol 64 mg/dL (>40); LDL Cholesterol Calculated 176 mg/dL (<100); Potassium 3.9 mmol/L (3.3-5.1); Sodium 142 mmol/L (135-145); Total Protein 7.9 g/dL (6.5-8.0); Triglycerides 172 mg/dL (<150)
[2023-11-18 14:34] LABS: Vitamin D 25-OH Total 31.6 ng/mL (>30)
[2023-11-18 14:37] LABS: Vitamin B12 649 pg/mL (200-900)
== END 2023-11-18 11:50 | disposition home or self-care (01) ==
LOC: HO.HMGCLDS 11:49
PROVIDERS: PCP Internal Medicine; Visit Provider Internal Medicine
DX: E78.5 Hyperlipidemia, unspecified (principal); E53.8 Deficiency of other specified B group vitamins; E55.9 Vitamin D deficiency, unspecified; I10 Essential (primary) hypertension; Z86.73 Personal history of transient ischemic attack (TIA), and cerebral infarction without residual deficits
CPT/HCPCS: 36415; 80053; 80061; 82306; 82607; 83036; 85025

== ENCOUNTER 2024-06-12 09:40 | Outpatient (AMB) | payer OTHER, SELFPAY ==
[2024-06-12 09:45] VITALS: BP 122/68; PULSE 74; O2SAT 99; BMI 35.9
--- NOTE | 2024-06-12 09:45 | A.OFFPC_ITS ---
Vital Signs 06/12/24 09:45 Height 5 ft 4 in Weight 209 lb BMI 35.9 BP 122/68 Blood Pressure Location Rt brachial Position Sitting Pulse 74 Pulse Source Pulse Oximeter Pulse Oximetry (%) 99 Oxygen Delivery Method Room Air Intake Visit Reasons: PE Intake Note: Pt is here today for PE. Allergies No Known Allergies Allergy (Verified 06/12/24 09:46) Medication List - Last Reconciled 06/12/24 by Ami Reinoso MD cholecalciferol (vitamin D3) 50 mcg PO DAILY fluticasone propionate 50 mcg/actuation 1 spray intranasal BID lisinopril 5 mg PO DAILY miscellaneous medical supply 1 ea miscellaneous .QD multivitamin with iron 1 tab PO DAILY pravastatin 40 mg PO DAILY sertraline 100 mg PO QAM valacyclovir (Valtrex) 1,000 mg PO DAILY Tobacco use date assessed: 06/12/24 Dental Screening Dental Screen Date: 06/12/24 Did you have a dental visit in the last 12 months?: Yes Did you have a dental problem in the last 6 months where you did not have access to dental care?: No Was dental information given to patient?: Patient has dentist HPI PE HPI Details Pt presents for PE. [facility] Medical History (Updated 06/12/24 @ 12:38 by Ami Reinoso MD) Annual physical exam Pituitary adamantinoma Internal derangement of left knee Vitamin D deficiency Anxiety Vitamin B12 deficiency IBS (irritable bowel syndrome) Food allergy Macrocytic anemia Gall stones Normal Pap smear Fatty liver Chronic diarrhea HTN (hypertension) Surgical History (Updated 06/12/24 @ 10:02 by Ami Reinoso MD) History of cardiac radiofrequency ablation History of surgery on wrist Family History Maternal Grandmother Crohn disease Mother Colon polyps Father No problems noted. Sister Mental health disorder Substance use disorder Social History Housing: House Alcohol intake: current Alcohol intake frequency: holidays/special occasions only Patient Tobacco Use Status: Never used Tobacco e-Cigarette/Vaping Use: Never Used Second Hand Smoke Exposure: No service: No Current occupational status: employed Cognitive needs: No Hearing needs: No Vision needs: Yes Questionnaire PHQ-9 Over the last 2 weeks, how often have you been bothered by any of the following problems? 1. Little interest or pleasure in doing things: not at all 2. Feeling down, depressed, or hopeless: not at all 3. Trouble falling or staying asleep, or sleeping too much: not at all 4. Feeling tired or having little energy: not at all 5. Poor appetite or overeating: several days 6. Feeling bad about yourself - or that you are a failure or have let yourself or your family down: not at all 7. Trouble concentrating on things, such as reading the newspaper or watching television: several days 8. Moving or speaking so slowly that other people could have noticed. Or the opposite - being so fidgety or restless that you have been moving around a lot more than usual: not at all 9. Thoughts that you would be better off or of hurting yourself in some way: not at all Total score: 2 Depression Screening Interpretation: Negative Depression Screening Done: Yes 63713 - PHQ-9 Billing: Yes Source: Developed by Drs. Daniel Wlels, Doretha Donahue, Shayan Camara and colleagues, with an educational heather from [email or web address]. Thrive Questionnaire Date Thrive assessed: 06/12/24 I am a: Patient What is your living situation today?: I have a place to live, but I am worried about losing it in the future Within the past 12 months, did the food you bought not last and you didn't have the money to get more?: I choose not to answer this question Within the past 12 months, did you worry whether your food would run out before you got money to buy more?: I choose not to answer this question Do you have trouble paying for medicines?: I choose not to answer this question Do you have trouble getting transportation to medical appointments?: I choose not to answer this question Do you have trouble paying your heating and electricity bill?: I choose not to answer this question Do you have trouble taking care of your child, family member or friend?: I choose not to answer this question Do you have trouble with day-to-day activities such as bathing, preparing meals, shopping, managing finances, etc.?: I choose not to answer this question Are you currently unemployed and looking for a job?: I choose not to answer this question Are you interested in more education?: I choose not to answer this question Please select the resources that you would like help with: None Currently or been in a relationship where the following occur: I choose not to answer THRIVE Score: 1 AUDIT C Alcohol Use Questionnaire (AUDIT-C) 1. How often do you have a drink containing alcohol?: Monthly or less 2. How many drinks containing alcohol do you have on a typical day when you are drinking?: 1 or 2 3. How often do you have six or more drinks on one occasion?: Never Total Score: 1 DELIA-7 AMB Questionnaire DELIA-7 Date DELIA - 7 assessed: 06/12/24 Feeling nervous, anxious, or on edge: 2 = More than half the days Not being able to stop or control worryin = More than half the days Worrying too much about different things: 2 = More than half the days Trouble relaxin = Several days Being so restless that it is hard to sit still: 0 = Not at all Becoming easily annoyed or irritable: 0 = Not at all Feeling afraid as if something awful might happen: 1 = Several days Total DELIA-7 score (0-4 normal; 5-9 mild; 10-14 moderate; 15-21 severe): 8 Source: Developed by Drs. Daniel Wells, Doretha Donahue, Shayan Camara and colleagues, with an educational heather from [email or web address]. DELIA-7 Assessment Billing DELIA-7 Assessment Tool: DELIA-7 Assessment 63141 Review of Systems Const All systems reviewed & are unremarkable except as noted in HPI and below Eyes Reports no additional complaints ENT Reports no additional complaints Card Reports no additional complaints Resp Reports no additional complaints GI Reports no additional complaints Reports no additional complaints Physical exam (Primary Care) BMI result Body Mass Index 35.9 Tobacco/Smoking Status: Tobacco use Status Tobacco use date assessed 08/28/22 06/10/24 15:14 Patient Tobacco Use Status Never used Tobacco 06/10/24 15:14 e-Cigarette/Vaping Use Never Used 06/10/24 15:14 Depression Screening Interpretation: Negative Thrive Assessment: Date of Thrive Assessment Date Thrive assessed 11/26/22 06/10/24 15:14 Currently or been in a relationship where the following occur: I choose not to answer Const General: no acute distress HENMT Head: Yes normal to inspection Ears: hearing grossly normal bilaterally Face and sinus: Yes normal facial exam Mouth: Normal oral and palatal mucosa present Throat: Yes posterior oropharynx normal Eyes General: appearance normal, both eyes and all related structures Neck Neck: Yes no lymphadenopathy and Yes supple Resp Effort & Inspection: normal respiratory effort Auscultation: clear to auscultation bilaterally Cardio Rhythm: regular rhythm Heart sounds: S1 normal heart sound present and S2 normal heart sound present GI Inspection: Yes normal to inspection Palpation (GI): Soft to palpation Percussion: Yes normal to percussion Auscultation: normal bowel sounds Coding Level of Care Code Est Pt Prev Care 40-64y(14764) Diagnoses HTN (hypertension) I10 Vitamin B12 deficiency E53.8 Vitamin D deficiency E55.9 Hyperlipidemia E78.5 CVA (cerebral vascular accident) I63.9 Pituitary mass E23.6 Annual physical exam Z00.00 Additional Codes DELIA-7 Assessment Billing - DELIA-7 Assessment Tool: DELIA-7 Assessment 74025 ([id number]) Assessment & Plan Assessment & Plan (1) HTN (hypertension): Code(s): I10 - Essential (primary) hypertension Category: Medical Plan: Continue lisinopril (2) Vitamin B12 deficiency: Code(s): E53.8 - Deficiency of other specified B group vitamins Category: Medical Plan: Continue B12 supplement (3) Vitamin D deficiency: Code(s): E55.9 - Vitamin D deficiency, unspecified Category: Medical Plan: Continue vitamin-D supplement (4) Hyperlipidemia: Code(s): E78.5 - Hyperlipidemia, unspecified Category: Medical Plan: Continue pravastatin return for fasting blood work (5) CVA (cerebral vascular accident): Comment: R optic nerve 06/09 Code(s): I63.9 - Cerebral infarction, unspecified Category: Medical Plan: Continue statin (6) Pituitary mass: Comment: MRI 10/2022 AND 11/2023 UNCHANGED 8 mm Code(s): E23.6 - Other disorders of pituitary gland Category: Medical Plan: Repeat MRI next year (7) Annual physical exam: Code(s): Z00.00 - Encounter for general adult medical examination without abnormal findings Category: Medical Plan: well balanced diet, regular exercise, pt is up to date with colonoscopy and drive thru order taker Orders: Orders Lipid Panel Today E53.8 - Deficiency of other specified B group vitamins, E55.9 - Vitamin D deficiency, unspecified, E78.5 - Hyperlipidemia, unspecified, I10 - Essential (primary) hypertension, I63.9 - Cerebral infarction, unspecified Comprehensive [place]. Panel Fast Today E53.8 - Deficiency of other specified B group vitamins, E55.9 - Vitamin D deficiency, unspecified, E78.5 - Hyperlipidemia, unspecified, I10 - Essential (primary) hypertension, I63.9 - Cerebral infarction, unspecified Complete Blood Count Auto Diff Today E53.8 - Deficiency of other specified B group vitamins, E55.9 - Vitamin D deficiency, unspecified, E78.5 - Hyperlipidemia, unspecified, I10 - Essential (primary) hypertension, I63.9 - Cerebral infarction, unspecified Prolactin Today D44.3 - Neoplasm of uncertain behavior of pituitary gland
== END 2024-06-12 10:08 | disposition home or self-care (01) ==
PROVIDERS: PCP Internal Medicine; Visit Provider Internal Medicine
DX: Z00.00 Encounter for general adult medical examination without abnormal findings (principal); I10 Essential (primary) hypertension; E23.6 Other disorders of pituitary gland; Z86.73 Personal history of transient ischemic attack (TIA), and cerebral infarction without residual deficits; E53.8 Deficiency of other specified B group vitamins; E55.9 Vitamin D deficiency, unspecified; E78.5 Hyperlipidemia, unspecified

== ENCOUNTER → 2024-06-12 09:40 | Outpatient (BNVA) | payer OTHER, SELFPAY | PROVIDERS: PCP Internal Medicine; Visit Provider Internal Medicine | DX: Z00.01 Encounter for general adult medical examination with abnormal findings (principal); I10 Essential (primary) hypertension; E53.8 Deficiency of other specified B group vitamins; E55.9 Vitamin D deficiency, unspecified; E78.5 Hyperlipidemia, unspecified; I63.9 Cerebral infarction, unspecified; E23.6 Other disorders of pituitary gland | CPT/HCPCS: 96127; 99396 ==

== ENCOUNTER → 2025-03-19 11:00 | Outpatient (BNV) | payer OTHER, SELFPAY | PROVIDERS: PCP Internal Medicine; Visit Provider Internal Medicine | DX: G47.33 Obstructive sleep apnea (adult) (pediatric) (principal) | CPT/HCPCS: 95806 ==

== ENCOUNTER → 2025-03-22 11:08 | Outpatient (REF) | payer OTHER, SELFPAY ==
--- OUTSIDE RECORDS SUMMARY | 2025-03-22 12:09 | XMS_ITS | Clinical Summary ---
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 Not on kathleen e 12/15/2022 Are you concerned about learning? Not on file 12/15/2022 No 12/15/2022 No 12/15/2022 Digital Access Answer Date Recorded No 01/15/2023 No 01/15/2023 Reliable internet access at home? Not on file 01/15/2023 Device with a working camera? Not on file Comments Unknown Sex and Gender Information Value Date Recorded Sex Assigned at Female 05/03/2022 1:41 PM EDT Legal Sex Female 1:35 PM EDT Gender Identity Female 05/03/2022 1:41 PM EDT Sexual Orientation Straight 05/03/2022 1: 41 PM EDT Last Filed Vital Signs Vital Sign Reading Time Taken Comments Blood Pressure - - Pulse - - Temperature - - Respiratory Rate - - Oxygen Saturation - - Inhaled Oxygen Concentration - - Weight 79.4 kg (175 lb) 12/20/2022 7:49 AM EDT Height 162.6 cm (5' 4 ) 08/09/2023 5:47 PM EST Body Mass Index 30.04 12/20/2022 7:49 AM EDT Plan of Treatment Upcoming Encounters Date Type Department Care Team (Late st Contact Info) Description 05/26/2025 9:30 AM EDT Office Visit [facility] [address] [place] [address] Jose Manuel Billy MD [address] [facility] [place] [address] [email or web address] Health Maintenance Due Date Last Done Comments Adult Td,Tdap Booster 1967 LIPID PANEL 1967 DEPRESSION SCREENING 1979 SMOKING Hx and SMOKELESS TOB ACCO SCREENING 1980 HEPATITIS C SCREENING 1985 HIV ONE-TIME SCREENING (18-6 5 YEARS) 1985 PAP SMEAR 1988 SCREENING FOR DIABETES 2002 MAMMOGRAM 2007 COLOGUARD 2012 COLONOSCOPY 2012 COLORECTAL CANCER SCREENING 2012 FIT TEST 2012 FOBT 2012 SIGMOIDOSCOPY 2012 VIRTUAL COLONOSCOPY 2012 PNEUMOCOCCAL VACCINES (50+ y ears) (1 of 1 - PCV) 2017 ZOSTER VACCINES (1 of 2) 2017 COVID-19 VACCINE (2023-2 5 season) 2024 HEPATITIS A VACCINES Aged Out No long er eligible based on patient's age to complete this topic HIB VACCINES Aged Out No longer eligi ble based on patient's age to complete this topic MENINGOCOCCAL VACCINES (ACWY) Aged Out No longer eligible based on patient's age to complete this topic MENINGOCOCCAL VACCINES (B) Aged Out N o longer eligible based on patient's age to complete this topic Medical Devices Not on file Insurance [facility] ACO ACO O [place] [address] [place] [address] ACO [facility]CO [facility] Care Teams Pallet Sorter Relationship Specialty Start Date End Date Ami Reinoso MD [address] [place] [address] PCP - General 05/03/22 Additional Source Comments The information contained in this document represents components of the legal health record. It is not the complete legal health record.[facility]
== END ==
LOC: HO.SL 11:08
PROVIDERS: PCP Internal Medicine; Visit Provider Internal Medicine
DX: G47.33 Obstructive sleep apnea (adult) (pediatric) (principal); G47.30 Sleep apnea, unspecified
CPT/HCPCS: 95806

== ENCOUNTER 2025-06-16 12:53 | Outpatient (AMB) | payer OTHER, SELFPAY ==
[2025-06-16 13:44] VITALS: BP 140/82; PULSE 92; RESP 17; TEMP 36.7; O2SAT 97; BMI 37.9
--- NOTE | 2025-06-16 13:44 | MHC.PC.OV ---
Vital Signs 06/16/25 13:44 Height 5 ft 4 in Weight 221 lb BMI 37.9 BP 140/82 H Blood Pressure Location Rt brachial Position Sitting Respiration 17 Pulse 92 Pulse Source Pulse Oximeter Temp 98.1 F Temp Source Oral Pulse Oximetry (%) 97 Oxygen Delivery Method Room Air Intake Visit Reasons: PE Intake Note: Pt is here today for PE. Allergies No Known Allergies Allergy (Verified 06/16/25 13:45) Medication List - Last Reconciled 06/16/25 by Ami Reinoso MD cholecalciferol (vitamin D3) 50 mcg PO DAILY CPAP (CPAP Machine/Device) As directed-Auto PAP mode with pressure setting 6-20 cm with monitoring for compliance. CPAP and all supplies fluticasone propionate 50 mcg/actuation 1 spray intranasal BID lisinopril 5 mg PO DAILY miscellaneous medical supply 1 ea miscellaneous .QD multivitamin with iron 1 tab PO DAILY pravastatin 40 mg PO DAILY sertraline 100 mg PO QAM valacyclovir (Valtrex) 1,000 mg PO DAILY Tobacco use date assessed: 06/16/25 Dental Screening Dental Screen Date: 06/16/25 Did you have a dental visit in the last 12 months?: Yes Did you have a dental problem in the last 6 months where you did not have access to dental care?: No Was dental information given to patient?: Patient has dentist HPI PE HPI Details Pt presents for PE. [facility] Medical History Annual physical exam Pituitary adamantinoma Internal derangement of left knee Vitamin D deficiency Anxiety Vitamin B12 deficiency IBS (irritable bowel syndrome) Food allergy Macrocytic anemia Gall stones Normal Pap smear Fatty liver Chronic diarrhea HTN (hypertension) Surgical History History of cardiac radiofrequency ablation History of surgery on wrist Family History Maternal Grandmother Crohn disease Mother Colon polyps Father No problems noted. Sister Mental health disorder Substance use disorder Social History Housing: House Alcohol intake: current Alcohol intake frequency: holidays/special occasions only Patient Tobacco Use Status: Never used Tobacco e-Cigarette/Vaping Use: Never Used Second Hand Smoke Exposure: No service: No Current occupational status: employed Cognitive needs: No Hearing needs: No Vision needs: Yes Questionnaire PHQ-9 Over the last 2 weeks, how often have you been bothered by any of the following problems? 1. Little interest or pleasure in doing things: not at all 2. Feeling down, depressed, or hopeless: several days 3. Trouble falling or staying asleep, or sleeping too much: several days 4. Feeling tired or having little energy: several days 5. Poor appetite or overeating: several days 6. Feeling bad about yourself - or that you are a failure or have let yourself or your family down: several days 7. Trouble concentrating on things, such as reading the newspaper or watching television: not at all 8. Moving or speaking so slowly that other people could have noticed. Or the opposite - being so fidgety or restless that you have been moving around a lot more than usual: not at all 9. Thoughts that you would be better off or of hurting yourself in some way: not at all Total score: 5 Depression Screening Interpretation: Negative Depression Screening Done: Yes 15964 - PHQ-9 Billing: Yes Source: Developed by Drs. Daniel Wells, Doretha Donahue, Shayan Camara and colleagues, with an educational heather from [employer]. Thrive Questionnaire Date Thrive assessed: 06/16/25 I am a: Patient What is your living situation today?: I choose not to answer this question Within the past 12 months, did the food you bought not last and you didn't have the money to get more?: Sometimes True Within the past 12 months, did you worry whether your food would run out before you got money to buy more?: Sometimes True Do you have trouble paying for medicines?: No Do you have trouble getting transportation to medical appointments?: I choose not to answer this question Do you have trouble paying your heating and electricity bill?: Yes Do you have trouble taking care of your child, family member or friend?: No Do you have trouble with day-to-day activities such as bathing, preparing meals, shopping, managing finances, etc.?: I choose not to answer this question Are you currently unemployed and looking for a job?: I choose not to answer this question Are you interested in more education?: I choose not to answer this question Please select the resources that you would like help with: Food, Utilities, Daily support and Education Currently or been in a relationship where the following occur: I choose not to answer THRIVE Score: 3 AUDIT C Alcohol Use Questionnaire (AUDIT-C) 1. How often do you have a drink containing alcohol?: 2-4 times a month 2. How many drinks containing alcohol do you have on a typical day when you are drinking?: 1 or 2 3. How often do you have six or more drinks on one occasion?: Never Total Score: 2 DELIA-7 AMB Questionnaire DELIA-7 Date DELIA - 7 assessed: 06/16/25 Feeling nervous, anxious, or on edge: 2 = More than half the days Not being able to stop or control worryin = More than half the days Worrying too much about different things: 2 = More than half the days Trouble relaxin = More than half the days Being so restless that it is hard to sit still: 1 = Several days Becoming easily annoyed or irritable: 1 = Several days Feeling afraid as if something awful might happen: 1 = Several days Total DELIA-7 score (0-4 normal; 5-9 mild; 10-14 moderate; 15-21 severe): 11 Source: Developed by Drs. Daniel Wells, Doretha Donahue, Shayan Camara and colleagues, with an educational heather from [employer]. DELIA-7 Assessment Billing DELIA-7 Assessment Tool: DELIA-7 Assessment 46060 Review of Systems Const All systems reviewed & are unremarkable except as noted in HPI and below Eyes Reports no additional complaints ENT Reports no additional complaints Card Reports no additional complaints Resp Reports no additional complaints GI Reports no additional complaints Reports no additional complaints Physical exam (Primary Care) Vital Signs: Last Vital Signs Temp 98.1 F 06/16/25 13:44 Pulse 92 06/16/25 13:44 Resp 17 06/16/25 13:44 BP 140/82 H 06/16/25 13:44 Pulse Ox 97 06/16/25 13:44 Oxygen Delivery Method Room Air 06/16/25 13:44 BMI result Body Mass Index 37.9 Tobacco/Smoking Status: Tobacco use Status Tobacco use date assessed 06/16/25 06/16/25 13:49 Patient Tobacco Use Status Never used Tobacco 06/16/25 13:49 e-Cigarette/Vaping Use Never Used 06/16/25 13:49 PHQ-9: PHQ-9 Score PHQ-9: Total score 5 06/16/25 13:49 Depression Screening Interpretation: Negative Thrive Assessment: Date of Thrive Assessment Date Thrive assessed 06/16/25 06/16/25 13:49 Currently or been in a relationship where the following occur: I choose not to answer Const General: no acute distress HENMT Head: Yes normal to inspection Face and sinus: Yes normal facial exam Mouth: Normal oral and palatal mucosa present Throat: Yes posterior oropharynx normal Eyes General: appearance normal, both eyes and all related structures Neck Neck: Yes no lymphadenopathy and Yes supple Resp Effort & Inspection: normal respiratory effort Auscultation: clear to auscultation bilaterally Cardio Rhythm: regular rhythm Heart sounds: S1 normal heart sound present and S2 normal heart sound present GI Inspection: Yes normal to inspection Palpation (GI): Soft to palpation Percussion: Yes normal to percussion Auscultation: normal bowel sounds Coding Level of Care Code Est Pt Prev Care 40-64y(81038) Diagnoses Pituitary mass E23.6 HTN (hypertension) I10 Hyperlipidemia E78.5 Annual physical exam Z00.00 Additional Codes DELIA-7 Assessment Billing - DELIA-7 Assessment Tool: DELIA-7 Assessment 00457 ([id number]) PHQ-9 - 42208 - PHQ-9 Billing: Yes ([id number]) Assessment & Plan Assessment & Plan (1) Pituitary mass: Comment: MRI 10/2022 AND 11/2023 UNCHANGED 8 mm Code(s): E23.6 - Other disorders of pituitary gland Category: Medical Plan: Patient will have a repeat MRI to follow-up on pituitary mass (2) HTN (hypertension): Code(s): I10 - Essential (primary) hypertension Category: Medical Plan: Increase lisinopril to 10 mg a day, low-sodium diet regular exercise discussed with the patient she will follow-up in 2 months (3) Hyperlipidemia: Code(s): E78.5 - Hyperlipidemia, unspecified Category: Medical Plan: Continue pravastatin low-cholesterol diet (4) Annual physical exam: Code(s): Z00.00 - Encounter for general adult medical examination without abnormal findings Category: Medical Plan: Well-balanced diet regular exercise weight loss discussed with the patient, she will return for fasting blood work. She is up-to-date with the Pap smear and mammogram by [employer] and is due for repeat colonoscopy next August at [facility]. She will schedule an appointment Orders: Orders Complete Blood Count Auto Diff Today E78.5 - Hyperlipidemia, unspecified, I10 - Essential (primary) hypertension Lipid Panel Today E78.5 - Hyperlipidemia, unspecified, I10 - Essential (primary) hypertension Comprehensive [place]. Panel Fast 1 Year E55.9 - Vitamin D deficiency, unspecified, E78.5 - Hyperlipidemia, unspecified, I10 - Essential (primary) hypertension, Z00.00 - Encounter for general adult medical examination without abnormal findings Lipid Panel 1 Year E55.9 - Vitamin D deficiency, unspecified, E78.5 - Hyperlipidemia, unspecified, I10 - Essential (primary) hypertension, Z00.00 - Encounter for general adult medical examination without abnormal findings Vitamin D 25-OH Total 1 Year E55.9 - Vitamin D deficiency, unspecified, E78.5 - Hyperlipidemia, unspecified, I10 - Essential (primary) hypertension, Z00.00 - Encounter for general adult medical examination without abnormal findings MR head/brain wo con Today E23.6 - Other disorders of pituitary gland Comprehensive [place]. Panel Fast Today E78.5 - Hyperlipidemia, unspecified, I10 - Essential (primary) hypertension TSH reflex Free T4 Today E78.5 - Hyperlipidemia, unspecified, I10 - Essential (primary) hypertension UA w Microscopic Today E78.5 - Hyperlipidemia, unspecified, I10 - Essential (primary) hypertension Vitamin D 25-OH Total Today E78.5 - Hyperlipidemia, unspecified, I10 - Essential (primary) hypertension Complete Blood Count Auto Diff 1 Year E55.9 - Vitamin D deficiency, unspecified, E78.5 - Hyperlipidemia, unspecified, I10 - Essential (primary) hypertension, Z00.00 - Encounter for general adult medical examination without abnormal findings TSH reflex Free T4 1 Year E55.9 - Vitamin D deficiency, unspecified, E78.5 - Hyperlipidemia, unspecified, I10 - Essential (primary) hypertension, Z00.00 - Encounter for general adult medical examination without abnormal findings UA w Microscopic 1 Year E55.9 - Vitamin D deficiency, unspecified, E78.5 - Hyperlipidemia, unspecified, I10 - Essential (primary) hypertension, Z00.00 - Encounter for general adult medical examination without abnormal findings Medications: New lisinopril 10 mg PO DAILY 90 tabs 0RF Discontinued lisinopril Discontinued Reason: Doctor's Order 5 mg PO DAILY 90 tabs 3RF
--- OUTSIDE RECORDS SUMMARY | 2025-06-16 16:18 | XMS_ITS | Clinical Summary ---
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 08/02/2022 Encounters Date Type Department Care Team Description 05/26/2025 9:30 AM EDT Office Visit [address] 9 [place] [address] Jose Manuel Billy MD Optic atrophy of right eye (Primary Dx); Ischemic optic neuropathy of both eyes from Last 3 Months Social History Tobacco Use Types Packs/Day Years [...] 12/20/2022 7:49 AM EDT Plan of Treatment Health Maintenance Due Date Last Done Comments [...] 2017 ZOSTER VACCINES (1 of 2) 2017 INFLUENZA VACCINE (#1) 2025 COVID-19 VACCINE (1 - 2024-2 6 season) 2025 RSV VACCINE (1 - 1-dose 75+ series) 2042 HEPATITIS A VACCINES Aged Out No long [...] this topic Medical Devices Not on file Procedures Procedure Name Priority Date/Time Associated Diagnosis Comments FUNDUS PHOTOS - OU - BOTH EYES Routine 05/26/2025 11:07 AM EDT Optic atrophy of right eye OCT, OPTIC NERVE - OU - BOTH EYES Routine 05/26/2025 11:07 AM EDT Optic atrophy of right eye MACHUCA VISUAL FIELD - OU - BOTH EYES Routine 05/26/2025 9:42 AM EDT Optic atrophy of right eye from Last 3 Months Results * Fundus Photos - OU - Both Eyes (05/26/2025 11:07 AM EDT) Anatomical Region Laterality Modality Head Photography Narrative 05/27/2025 4:12 PM EDT Images from the original result were not included. us Jose Manuel Billy MD OPHTHALMOLOGY IMAGING Final Re sult * OCT, Optic Nerve - OU - Both Eyes - Cirrus; RNFL, GCC; Macula, Disc; HD 5-Line Disc GARRETT, HD Radial Disc GARRETT (05/26/2025 11:07 AM EDT) Narrative BUSHRA - 05/27/2025 4:12 PM EDT Right Eye Quality: Good. Retinal nerve fiber layer thickness (um): 50. Optic nerve head and nerve fiber layer: Abnormal superior, Abnormal temporal. Ganglion cell or retinal thickness: Diffuse thinning. Left Eye Quality: Good. Retinal nerve fiber layer thickness (um): 70. Optic nerve head and nerve fiber layer: Abnormal superior. Ganglion cell or retinal thickness: Abnormal superior. us Jose Manuel Billy MD OPHTHALMOLOGY IMAGING Final Re sult BUSHRA * Machuca Visual Field - OU - Both Eyes (05/26/2025 9:42 AM EDT) [facility] HVF Mean Deviation (OS) - Left Eye -1.33 dB BUSH[facility] HVF Mean Deviation (OD) - Right Eye -18.61 dB BUSHRA Narrative BUSHRA - 05/27/2025 4:12 PM EDT Right Eye Pattern: 24-2. Strategy: ANEUDY - Fast. Reliability: Poor. Mean Deviation: -18.61 dB dB. Foveal threshold: Reduced. Findings: Inferior altitudinal defect. Left Eye Pattern: 24-2. Strategy: ANEUDY - Fast. Reliability: Good. Mean Deviation: -1.33 dB dB. Foveal threshold: Normal. Findings: Normal. us Jose Manuel Billy MD OPHTHALMOLOGY IMAGING Final Re sult HARMONY from Last 3 Months Insurance ACO ACO [place]CO [place] [address] [place] [address] [place] [address] [place] [address] [place] [place] [address] ACO Care Teams Pairing Machine Operator Relationship Specialty Start Date End Date Ami Reinoso MD [address] [place] [address] PCP - General 05/03/22 Additional Source Comments The information contained in this document represents components of the legal health record. It is not the complete legal health record.[facility]
--- OUTSIDE RECORDS SUMMARY | 2025-06-16 16:18 | XMS_ITS | Encounter Summary ---
Author Organization [facility] Address [address] [place] [address] Phone Care Team Providers Care Ms Sql Developer Name Role Phone Ami Reinoso MD Primary Care Provider Encounter Details Date Type Department Care Team (Late st Contact Info) Description 04/16/2023 Procedure Pass [facility] - MRI, [address] [address] Social History Tobacco Use Types Packs/Day Years Used Date Smoking Tobacco: Former Cigarettes Smokeless Tobacco: Never Education Answer Date Recorded Are you interested [...] Orientation Straight 05/03/2022 1: 41 PM EDT documented as of this encounter Plan of Treatment Not on file documented as of this encounter Visit Diagnoses Not on filedocumented in this encounter Care Teams Ms Sql Developer Relationship Specialty Start Date End Date Ami Reinoso MD [address] [place], [place] [id number] PCP - General 05/03/22 documented as of this encounter Additional Source Comments The information contained in this document represents components of the legal health record. It is not the complete legal health record.[facility]
--- OUTSIDE RECORDS SUMMARY | 2025-06-16 16:18 | XMS_ITS | Encounter Summary ---
Author Organization [facility] Address [address] [place] [address] Phone Care Team Providers Care Client Services Director Name Role Phone Ami Reinoso MD Primary Care Provider [phone] Encounter Details Date Type Department Care Team (Late st Contact Info) Description 12/19/2022 Procedure Pass [facility] - MRI, [address] [address] Social History Tobacco Use Types Packs/Day Years Used Date Smoking Tobacco: Former Cigarettes Smokeless Tobacco: Never Education Answer Date Recorded Are you interested in more education? Not on kathleen e 12/15/2022 Are you concerned about learning? Not on file 12/15/2022 No 12/15/2022 No 12/15/2022 Comments Unknown Sex and Gender Information Value Date Recorded Sex Assigned at Female 05/03/2022 1:41 PM EDT Legal Sex Female 1:35 PM EDT Gender Identity Female 05/03/2022 1:41 PM EDT Sexual Orientation Straight 05/03/2022 1: 41 PM EDT documented as of this encounter Last Filed Vital Signs Vital Sign Reading Time Taken Comments Blood Pressure - - Pulse - - Temperature - - Respiratory Rate - - Oxygen Saturation - - Inhaled Oxygen Concentration - - Weight 79.4 kg (175 lb) 12/20/2022 7:49 AM EDT Height 162.6 cm (5' 4 ) 12/20/2022 7:49 AM EDT Body Mass Index 30.04 12/20/2022 7:49 AM EDT documented in this encounter Plan of Treatment Not on file documented as of this encounter Visit Diagnoses Not on filedocumented in this encounter Care Teams Client Services Director Relationship Specialty Start Date End Date Ami Reinoso MD [facility] [place] [address] PCP - General 05/03/22 documented as of this encounter Additional Source Comments The information contained in this document represents components of the legal health record. It is not the complete legal health record.[facility]
--- OUTSIDE RECORDS SUMMARY | 2025-06-16 16:18 | XMS_ITS | Encounter Summary ---
Author Organization [facility] Address [address] [facility] [address] [place] [address] Phone Care Team Providers Care Podiatry Professor Name Role Phone Ami Reinoso MD Primary Care Provider [phone] Encounter Details Date Type Department Care Team (Late st Contact Info) Description 12/19/2022 Procedure Pass [facility] - MRI, [address] [address] Social History Tobacco Use Types Packs/Day Years [...] on filedocumented in this encounter Care Teams Podiatry Professor Relationship Specialty Start Date End Date Ami Reinoso MD [address] [place] [address] PCP - General 05/03/22 documented as of this encounter Additional Source Comments The information contained in this document represents components of the legal health record. It is not the complete legal health record.[facility]
== END 2025-06-16 14:57 | disposition home or self-care (01) ==
LOC: HO.HMCC 12:54
PROVIDERS: PCP Internal Medicine; Visit Provider Internal Medicine
DX: Z00.00 Encounter for general adult medical examination without abnormal findings (principal); E23.6 Other disorders of pituitary gland; I10 Essential (primary) hypertension; E78.5 Hyperlipidemia, unspecified

== ENCOUNTER → 2025-06-16 12:53 | Outpatient (BNVA) | payer OTHER, SELFPAY | PROVIDERS: PCP Internal Medicine; Visit Provider Internal Medicine | DX: Z00.00 Encounter for general adult medical examination without abnormal findings (principal); E23.6 Other disorders of pituitary gland; I10 Essential (primary) hypertension; E78.5 Hyperlipidemia, unspecified | CPT/HCPCS: 96127; 99396 ==

== ENCOUNTER → 2025-07-20 10:27 | Outpatient (BNV) | payer OTHER, SELFPAY | PROVIDERS: PCP Internal Medicine; Visit Provider Radiology Diagnostic Radiology | DX: E23.6 Other disorders of pituitary gland (principal) | CPT/HCPCS: 70553 ==

== ENCOUNTER 2025-07-20 10:28 | Outpatient (REF) | payer OTHER, SELFPAY ==
--- NOTE | ~2025-07-20 | MR_ITS ---
EXAMINATION: MR BRAIN PITUITARY PROTOCOL WITHOUT AND WITH CONTRAST CLINICAL INFORMATION: E23.6. Other disorders of pituitary gland. COMPARISON: None available. TECHNIQUE: Multiplanar, multisequence MRI of the brain pituitary protocol was obtained before and after the intravenous administration of 5.0 mL gadolinium based (Gadavist) without reported immediate complications.. FINDINGS: The pituitary gland demonstrates normal morphology and enhancement pattern. The pituitary stalk measures 2 mm in maximal thickness without enhancing lesion. The optic chiasm is intact and normal signal. Flow-void signal within the cavernous supracavernous segments of the ICAs normal. No abnormal enhancement in the cavernous sinuses. No abnormal enhancement within the intra-axial or extra-axial compartment of the cranium based upon the axial T1 postcontrast. No restricted diffusion. No acute intracranial hemorrhage, mass effect, midline shift, hydrocephalus or herniation. Bilateral, nonspecific, a few scattered, punctate subcortical white matter hyperintense T2 FLAIR signal centrum semiovale and reynolds radiata, both cerebral hemispheres. Flow-void signal within the main cerebral vessels is normal. Craniocervical junction is intact with normal position of the cerebellar tonsils. Prominence of the extra-axial CSF spaces cerebral sulci involving mostly the bifrontal biparietal lobes. MR/MR head/brain wo/w con IMPRESSION: Normal MRI pituitary gland. Electronically signed by: [place] Oakes MD 07/20/2025 11:58 AM MARIELA
--- OUTSIDE RECORDS SUMMARY | 2025-07-20 12:01 | XMS_ITS | Encounter Summary ---
Author Organization [facility] Address [address] [facility] [address] [place] [address] Phone Care Team Providers Care Clay Maker Name Role Phone Ami Reinoso MD Primary Care Provider [phone] Encounter Details Date Type Department Care Team (Late st Contact Info) Description 12/19/2022 Procedure Pass [facility] - MRI, [address] [address] Social History Tobacco Use Types Packs/Day Years [...] 1:41 PM EDT Sexual Orientation Straight 05/03/2022 1 :41 PM EDT documented as of this encounter Plan of Treatment Not on file documented as of this encounter Visit Diagnoses Not on filedocumented in this encounter Care Teams Clay Maker Relationship Specialty Start Date End Date Ami Reinoso MD [address] [place] [address] PCP - General 05/03/22 documented as of this encounter Additional Source Comments The information contained in this document represents components of the legal health record. It is not the complete legal health record.[facility]
--- OUTSIDE RECORDS SUMMARY | 2025-07-20 12:01 | XMS_ITS | Encounter Summary ---
Author Organization [facility] Address [address] [place] [address] Phone Care Team Providers Care Rocket Propellant Plant Supervisor Name Role Phone Ami Reinoso MD Primary Care Provider [phone] Encounter Details Date Type Department Care Team (Late st Contact Info) Description 12/19/2022 Procedure Pass [facility] - MRI, [address] [address] Social History Tobacco Use Types Packs/Day Years [...] on filedocumented in this encounter Care Teams Rocket Propellant Plant Supervisor Relationship Specialty Start Date End Date Ami Reinoso MD [facility] [place] [address] PCP - General 05/03/22 documented as of this encounter Additional Source Comments The information contained in this document represents components of the legal health record. It is not the complete legal health record.[facility]
--- OUTSIDE RECORDS SUMMARY | 2025-07-20 12:01 | XMS_ITS | Encounter Summary ---
Author Organization [facility] Address [address] [place] [address] Phone Care Team Providers Care Paving Block Cutter Name Role Phone Ami Reinoso MD Primary Care Provider [phone] Encounter Details Date Type Department Care Team (Late st Contact Info) Description 04/16/2023 Procedure Pass [facility] - MRI, [address] [address] Social History Tobacco Use Types Packs/Day Years [...] on filedocumented in this encounter Care Teams Paving Block Cutter Relationship Specialty Start Date End Date Ami Reinoso MD [address] [place], [place] [id number] PCP - General 05/03/22 documented as of this encounter Additional Source Comments The information contained in this document represents components of the legal health record. It is not the complete legal health record.[facility]
--- OUTSIDE RECORDS SUMMARY | 2025-07-20 12:02 | XMS_ITS | Clinical Summary ---
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 HVF Mean Deviation (OS) - Left [...] Months Insurance ACO ACO [place]CO [place] [place] [address] [place] [address] [place] [address] [place] [address] [place] [address] ACO Care Teams Business Development Agent Relationship Specialty Start Date End Date Ami Reinoso MD [address] [place] [address] PCP - General 05/03/22 Additional Source Comments The information contained in this document represents components of the legal health record. It is not the complete legal health record.[facility]
== END 2025-07-20 10:29 | disposition home or self-care (01) ==
LOC: HO.MRI 10:28
PROVIDERS: PCP Internal Medicine; Visit Provider Internal Medicine
DX: E23.6 Other disorders of pituitary gland (principal)
CPT/HCPCS: 70553; A9585

== ENCOUNTER 2025-07-27 11:53 | Outpatient (AMB) | payer OTHER, SELFPAY ==
[2025-07-27 12:03] VITALS: BP 140/92; PULSE 74; O2SAT 96; BMI 38.3
--- NOTE | 2025-07-27 12:03 | MHC.OFFVIS ---
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 03/2025 HST reviewed with pt, AHI is 19/hr and O2 Nadirs to 91%, and <88% for 12min. She has mild nocturnal hypoxemia, and snroes for 16% of TIB. She was started on apap therapy and has trouble breathing, feels suffocated due to the forceful pressures that shoot up to [id number] she wakes up and resets the pressures and this continues to happen at least 5x a night causing her to have shortness in breath and chest pain. She has not been compliant due to this difficulty. She snores loudly, gasps for air, and has bruxism, and denies morning headaches, occasionally will have dull pressure. She is not a morning person, chronically fatigued, and must have coffee to rise. She has asthma and allergies to ragweed, managed with fluticasone. 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 She is trying to be compliant and use the cpap, trying to lose weight, has a h/o WPW syndrome and an ablation in 2005. She has claustrophobia and difficulty with chin straps, she tried various nasal pillows and full face masks. Her BP is 140/92 usually normal at home and takes lisiniprol 10mg po. She has PTSD with anxiety managed with sertratline 100mg qam. She has night terrors, flailing, thrashing, behavior, with vivid dreams, causing her to wake up yelling in her dreams, tried prazosin, however concerned about REM sleep deficiencies so discontinued use. Acid reflux managed with medication and lifestyle. BMI is elevated, has chronic low back pain though walks daily, drinks water daily. She denies RLS, and paresthesias. Memory and diet is stable. She denies smoking, drinks alcohol socially. FH + dad stroke, mom eye disease. She goes to sleep at midnight and wakes up at 9am, she monitors her rhythm with [employer] mobile device. [employer] Serial number is [id number], and Auto Sense 11 Auto pressures 4-20, though machine is malfunctioning. She is interested in Vagal stimulator device, mandibular/ oral appliance, and Inspire therapy as alternative treatments. [facility] Medical History Annual physical exam Pituitary adamantinoma Internal derangement of left knee Vitamin D deficiency Anxiety Vitamin B12 deficiency IBS (irritable bowel syndrome) Food allergy Macrocytic anemia Gall stones Normal Pap smear Fatty liver Chronic diarrhea HTN (hypertension) Surgical History History of cardiac radiofrequency ablation History of surgery on wrist Family History Maternal Grandmother Crohn disease Mother Colon polyps Father No problems noted. Sister Mental health disorder Substance use disorder Social History Housing: House Alcohol intake: current Alcohol intake frequency: holidays/special occasions only Patient Tobacco Use Status: Never used Tobacco e-Cigarette/Vaping Use: Never Used Second Hand Smoke Exposure: No service: No Current occupational status: employed Cognitive needs: No Hearing needs: No Vision needs: Yes Physical Exam Const General: cooperative, comfortable and no acute distress Nutritional Appearance: obese Orientation/consciousness: patient oriented x3 HEENT Face and sinus: Yes face symmetric Throat: Yes other (mallampti score is 2) Neck Neck: Yes full ROM Resp Effort & Inspection: normal respiratory effort and able to speak in complete sentences Neuro Other: upper extremity mild tremor, hands General: patient oriented x3 and moves all extremities Cranial nerves: Yes Midline tongue present, Yes Ability to bilaterally rotate head present and Yes Ability to bilaterally elevate shoulders present Gait exam (Neuro): Staggering gait present Motor exam (neuro): Abnormal motor strength present and Abnormal muscle tone present Deep tendon reflexes (DTR's): Right triceps reflex intensity grade: 2+, Left triceps reflex intensity grade: 2+, Rt Biceps (C5, C6): 2+, Left biceps reflex intensity grade: 2+, Right brachioradialis reflex intensity grade: 2+, Left brachioradialis reflex intensity grade: 2+, Right patellar reflex intensity grade: 2+ and Left patellar reflex intensity grade: 2+ Psych Appearance: grossly normal Speech and movement: Normal speech and movement present Affect: Anxious affect present Attitude: cooperative Thought process: Normal thought process present Thought content: Normal thought content present Results Reviewed Results Reviewed: 03/2025 HST reviewed with pt, AHI is 19/hr and O2 Nadirs to 91%, and <88% for 12min. She has mild nocturnal hypoxemia, and snroes for 16% of TIB. Assessment & Plan Assessment & Plan (1) SHANNON on CPAP: Comment: moderate shannon with nocturnal hypoxemia Code(s): G47.33 - Obstructive sleep apnea (adult) (pediatric) Category: Medical (2) Nocturnal hypoxemia: Comment: overnight pulse oximetry Code(s): G47.34 - Idiopathic sleep related nonobstructive alveolar hypoventilation Category: Medical (3) Loud snoring: Code(s): R06.83 - Snoring Category: Medical (4) Bruxism (teeth grinding): Code(s): F45.8 - Other somatoform disorders Category: Medical (5) Claustrophobia: Comment: can not tolerate the cpap with chin straps on her face Code(s): F40.240 - Claustrophobia Category: Medical Plan Snoring Excessive daytime fatigue PSG is scheduled for October. RX is sent to [facility] for replacement machine her pressures are ramping up to [id number] and she is not able to tolerate her pressures. RLS will monitor. ENT referral DISE procedure as pt is interested in Evaluation. Labs 06/2024 reviewed (LDL, HLD, refer to PCP,) Ferrtin B12, MMA and Homocystein to r/o causes for deficiencies, and fatigue. Orders: Orders Overnight Pulse Oximetry Today G47.34 - Idiopathic sleep related nonobstructive alveolar hypoventilation Referrals Ear/Nose/Throat Referral G47.30 - Sleep apnea, unspecified, G47.33 - Obstructive sleep apnea (adult) (pediatric) Medications: New melatonin 5 mg PO DAILY 90 caps 0RF 3 months magnesium 200 mg PO DAILY 60 tabs 0RF Refilled cholecalciferol (vitamin D3) 50 mcg PO DAILY 90 caps 1RF Patient Instructions: Please complete the following fasting labs to rule out deficiencies. CBC/CMP/ B12/ Vit D/ TSH/ Homocysteine and MMA/ Ferritin. Sleep Hygiene provided: set a scheduled bedtime and wake time to help regulate the circadian rhythm and balance the release of pituitary hormones. Sleep in a dark room, temperatures below 68 degrees, and no devices n bed. Limit caffeinated products 6 hours prior to bed, and limit fluids 2-4 hours prior to bed. Gentle night yoga, diffusing essential oils, and playing soft music can be relaxing. Coding Level of Care Code New Pt Level 4 (77512) Diagnoses SHANNON on CPAP G47.33 Nocturnal hypoxemia G47.34 Loud snoring R06.83 Bruxism (teeth grinding) F45.8 Claustrophobia F40.240 Sleep Questionnaire Difficulty falling asleep: No Difficulty staying asleep?: Yes Number of arousals: 5 Snoring: Yes Witnessed apneas: Yes Gasping arousals: Yes Nocturia: Yes GERD: Yes Vivid dreams: Yes Acting out dreams: Yes Abnormal behavior in sleep: Yes Abnormal movements in sleep: Yes Morning headaches: Yes Excessive daytime sleepiness: Yes Daytime naps: Yes Restless legs: Yes Hallucinations: No Sleep paralysis: No Drop attacks: No Sleep Study: Yes CPAP: Yes
== END 2025-07-27 12:56 | disposition home or self-care (01) ==
LOC: HO.HSMS 11:53
PROVIDERS: PCP Internal Medicine; Visit Provider Physician Assistant Medical
DX: G47.33 Obstructive sleep apnea (adult) (pediatric) (principal); G47.34 Idiopathic sleep related nonobstructive alveolar hypoventilation; R06.83 Snoring; F45.8 Other somatoform disorders; F40.240 Claustrophobia
CPT/HCPCS: 99204

== ENCOUNTER → 2025-07-27 11:53 | Outpatient (BNVA) | payer OTHER, SELFPAY | PROVIDERS: PCP Internal Medicine; Visit Provider Physician Assistant Medical | DX: G47.33 Obstructive sleep apnea (adult) (pediatric) (principal); G47.34 Idiopathic sleep related nonobstructive alveolar hypoventilation; G25.81 Restless legs syndrome; F45.8 Other somatoform disorders; F40.240 Claustrophobia; R06.83 Snoring; Z99.89 Dependence on other enabling machines and devices; Z71.89 Other specified counseling; Z79.899 Other long term (current) drug therapy | CPT/HCPCS: 99202 ==